=== PATIENT | female | born 1955 | race Caucasian/White ===

== ENCOUNTER 2017-10-12 21:31 | Emergency (ER) | payer MEDICARE, OTHER ==
--- NOTE | 2017-10-12 22:13 | ED Physician Chart ---
ED Chief Complaint/HPI - Patient Information Date Seen:: 10/12/17 Time Seen:: 21:50 Chief Complaint:: fall down stairs lt rib pain History of Present Illness:: 62 yr old female who fell down metal steps misstep earlier today landed on lt rib area with lt rib pain , pain worse with movement took motrin for the pain mod to severe pain Allergies:: Allergies Allergy/AdvReac Type Severity Reaction Status Date / Time No Known Allergies Allergy Verified 10/12/17 21:52 Vitals:: Vital Signs - 8 hr 10/12/17 21:40 Temp 98.7 F HR 68 RR 18 BP 125/75 O2 Sat % 96 Historian:: Patient ED Review of Systems - Review of Systems General/Constitutional: No fever Skin: No skin lesions Head: No headache Eyes: No loss of vision ENT: No earache Neck: No neck pain Cardio Vascular: Chest pain, No palpitations Pulmonary: No SOB GI: No nausea, No vomiting G/U: No dysuria Musculoskeletal: Muscle pain, Other (lt rib pain) Endocrine: No polyuria Psychiatric: No prior psych history, No depression, No anxiety Hematopoietic: No bruising Allergic/Immuno: No urticaria Neurological: No syncope ED Past Medical History - Past Medical History Obtainable: Yes Past Medical History: Other (see nurses notes) Family History: Heart disease Social History: Non Smoker Family Medical History - Family Member Daughter Ethnicity: Non- Living Status: Still Living ED Physical Exam - Physical Examination General/Constitutional: Well-developed, well-nourished Head: Atraumatic Eyes: Lids, conjuctiva normal Skin: No rash ENMT: External ears, nose nl Neck: Nontender Other Respiratory comments:: RIB TENDERNESS LT LOWER Cardio Vascular: RRR GI: No tenderness/rebounding/guarding Other GI comments:: mild tenderness LUQ : No CVA tenderness Extremities: Full ROM Neuro/Psych: Alert/oriented ED Assessment - Assessment General Assessment: FALL LT RIB CONTUSION ED Septic Shock - . Is Septic Shock (SBP<90, OR Lactate>4 mmol\L) present?: No - <6hrs of presentation: Vital Signs: Vital Signs - 8 hr 10/12/17 21:40 Temp 98.7 F HR 68 RR 18 BP 125/75 O2 Sat % 96 ED Discharge Plan - Patient Disposition Admit/Discharge/Transfer: PT DISCHARGED HOME Condition at Disposition: Improved
[2017-10-12] MEDS ORDERED: Hydrocodone/APAP 10 mg/325 mg Tab ONE (22:28)
[2017-10-12] MEDS: Hydrocodone/APAP 10 mg/325 mg Tab PO STA (22:29)
--- NOTE | 2017-10-13 09:03 | Diagnostic Imaging Report ---
CT Chest without IV contrast HISTORY: Trauma, fall, left rib pain COMPARISON: CT abdomen and pelvis the same day. Technique: Axial images were obtained from the base of the neck to the upper abdomen without IV contrast. Reconstructions were made. Total DLP 1243 CTD I 8.4 Findings: Evaluation of mediastinum is limited due to lack of IV contrast. No evidence of mediastinal lymphadenopathy. Minimal atherosclerosis is noted. Heart size normal. No pericardial effusion. Hypoventilatory and atelectatic changes are seen with minimal consolidation changes of the left lung base. There is a small left apical pneumothorax estimated at 5-10%. There are fractures involving the left third and fourth ribs with surrounding minimal pockets of gas. There is a 3 mm nodular opacity seen along the along the major fissure (image 5, series 39). No effusions. The upper abdomen demonstrates no acute abnormalities. Degenerative changes of the spine are noted. IMPRESSION: Left 4th and 5th rib fractures with mild displacement of the left 4th rib fracture. There are few pockets of gas and evidence of soft tissue injury in this region. Small left apical pneumothorax is also noted estimated at 5-10%. Left lung atelectatic changes and minimal left basal consolidative changes. 3 mm nodular density of the right major fissure, nonspecific, and may be due to inflammatory infectious process. Consider follow-up indicated.
--- NOTE | 2017-10-13 09:07 | Diagnostic Imaging Report ---
CT abdomen and pelvis without intravenous contrast Indication: Trauma Comparison: CT chest the same day, Technique: Axial images were obtained from the lung bases to the bilateral proximal femurs without IV contrast. Coronal reconstructions were made. total DLP: 673 , CTDI4.7 FINDINGS: Assessment of the solid organs is limited due to lack of IV contrast. No evidence of focal hepatic lesions. Patient is status post cholecystectomy. No focal splenic or pancreatic lesions. No focal adrenal lesions. No evident of hydronephrosis or focal renal lesions. Moderate stool is seen throughout the colon. No evidence of bowel obstruction. No evidence of the air or free fluid. Appendix is unremarkable. Mild atherosclerosis is noted. Degenerative changes spine are noted. IMPRESSION: Limited exam due to lack of IV contrast. No evidence of gross solid organ injury. No evidence of free fluid. Evidence of prior cholecystectomy. Moderate stool noted. Degenerative changes.
== END 2017-10-12 23:45 | disposition home or self-care (01) ==
LOC: ER 21:31
DX: S20.212A Contusion of left front wall of thorax, initial encounter (principal); W10.9XXA Fall (on) (from) unspecified stairs and steps, initial encounter; Y93.89 Activity, other specified; Y92.89 Other specified places as the place of occurrence of the external cause; Y99.8 Other external cause status
CPT/HCPCS: 71250-TC; Z7502